=== PATIENT | female | born 1955 | race Caucasian/White ===

== ENCOUNTER 2017-06-12 12:36 | Observation (INO) | payer OTHER, SELFPAY ==
[2017-06-12] VITALS (8 sets, daily range): BP systolic 131–158; BP diastolic 71–93; PULSE 69–82; RESP 16–19; TEMP 36.2–36.8; O2SAT 95–99; BMI 34.0; BMI 33.6
--- NOTE | 2017-06-12 12:51 | RAD_ITS ---
STUDY: X-RAY CHEST REASON FOR EXAM: Female, 61 years old. Sternal chest pain and neck pain. TECHNIQUE: Single AP portable view of the chest. COMPARISON: None. FINDINGS: EKG electrodes are seen. The lungs are clear and expanded. There is no demonstrated pleural abnormality. Normal size heart. Normal mediastinum and ngozi. Normal visualized pulmonary arteries. Normal visualized aortic arch and descending thoracic aorta. Normal visualized thoracic spine. Reverse right shoulder replacement. There is good alignment. There is no demonstrated abnormality of the visualized soft tissue structures of the upper abdomen. RAD/Chest 1 View (Portable) IMPRESSION: No acute abnormality is seen. Electronically Signed: Sven Montiel MD at 13:17 EST Tel [phone], Service support ,
--- NOTE | 2017-06-12 12:51 | EKG12_ITS ---
Test Reason : CP Blood Pressure : / mmHG Vent. Rate : 080 BPM Atrial Rate : 080 BPM P-R Int : 160 ms QRS Dur : 086 ms QT Int : 360 ms P-R-T Axes : 059 066 042 degrees QTc Int : 415 ms Normal sinus rhythm Normal ECG Confirmed by JO-ANN BETANCUR, HEATHER ([id number]), general expeditor BHUPENDRA BARON ([id number]) on 06/14/2017 1:26:52 PM Referred By: KEITH/JOE Confirmed By:HEATHER BUSCH MD
[2017-06-12] MEDS: Aspirin 81 MG TAB.CHEW 324 MG PO (13:02)
[2017-06-12 13:04] LABS: Absolute Lymphocyte Count 2.55 X10^3/ul (0.83-4.51); Absolute Neutrophil Count 2.9 X10^3/uL (2.0-7.7); Basophil# 0.05 X10^3/uL; Basophil% 0.8 % (0-1); Eosinophil# 0.14 X10^3/uL; Eosinophils% 2.3 % (0-5); Hematocrit 40.4 % (37-47); Hemoglobin 13.5 g/dl (12.0-15.0); Lymphocyte # 2.55 X10^3/ul (4.0); Lymphocyte % 41.1 % (19-41); Mean Corp Hgb Conc 33.4 g/gl (32-36); Mean Corpuscular Hgb 32.5 pg (27.0-32.0); Mean Corpuscular Volume 97.1 fL (81-99); Monocyte# 0.53 X10^3/uL; Monocyte% 8.5 % (0-10); Neutrophil # 2.93 X10^3/uL (2.7-7.7); Neutrophil % 47.1 % (47-70); Platelet Count 227 K/mm3 (150-450); RBC Distribution Width SD 44.6 fl (35.1-43.9); Red Blood Count 4.16 M/mm3 (4.2-5.4); White Blood Count 6.2 K/mm3 (4.4-11.0)
[2017-06-12 13:05] LABS: POSITIVE COUNT NO; POSITIVE DIFFERENTIAL NO; POSITIVE MORPHOLOGY NO
[2017-06-12 13:19] LABS: Anion Gap 5 (5-15); BUN 17 mg/dL (7-18); BUN/Creat Ratio 26.7 RATIO (10-20); Calcium,Total 9.6 mg/dL (8.5-10.1); Chloride 100 mmol/L (98-107); Creatinine, Serum 0.64 mg/dL (0.55-1.02); EST Glomerular Filtration Rate 101 mL/min (>60); Est Glom Filt Rate - Afr Amer 122 mL/min (>60); Estimated Creatinine Clearance 67.14 ml/min; Glucose 92 mg/dL (74-106); Potassium 3.8 mmol/L (3.5-5.1); Sodium Level 136 mmol/L (136-145)
--- NOTE | 2017-06-12 14:39 | ED.DCSUM_ITS ---
- ER Visit Summary Date of Service: 06/12/17 Chief Complaint: Chest pain History of Present Illness: The patient is a 61 F presenting with chest pain which started 1 hour prior to arrival. Pain has been intermittent. It is substernal and radiates to the left side of her jaw. It is associated with shortness of breath. She has a family history of early heart disease. She has history of hiatal hernia. She is not a smoker. No other complaints. Physical Examination: Vitals are stable. Patient is afebrile. Alert no acute distress. HEENT exam is unremarkable. Neck is supple. Lungs are clear and equal bilaterally. Heart is regular rate and rhythm. Abdomen is soft nontender nondistended. Extremities are unremarkable. Skin is warm and dry. No focal neurologic deficit. Remainder of exam is unremarkable. Emergency Department Course and Treatment: EKG is sinus rate of 80 with no acute ischemic changes. Patient was given aspirin on arrival. CBC, chemistries unremarkable. Troponin is negative. She is now pain-free on reevaluation. Discussed with the hospitalist for observation. Disposition: Observation Impression: Chest pain This note was generated with Ur[employer] dictation software. It may contain incorrect words, spelling, and punctuation that were not noted in review of the chart prior to signing ED Disposition - Plan for ED Patient: Disposition: Acute Care Hospital [facility] Chief Complaint: Chest Pain
--- NOTE | 2017-06-12 14:55 | HP.PCM_ITS ---
Problem List (1) Chest pain Status: Acute Qualifiers: Chest pain type: unspecified Qualified Code(s): R07.9 - Chest pain, unspecified (2) Hypothyroidism Status: Acute (3) Depression Status: Chronic Qualifiers: Depression Type: unspecified Qualified Code(s): F32.9 - Major depressive disorder, single episode, unspecified (4) GERD (gastroesophageal reflux disease) Status: Chronic Qualifiers: Esophagitis presence: with esophagitis Qualified Code(s): K21.0 - Gastro- esophageal reflux disease with esophagitis History of Present Illness Date of Admission: 06/12/17 Chief Complaint: Chest pain - 1 day The patient is a 61 year old F past medical history of hypothyroidism, depression, hypertension, positive family history of heart disease in the father ( SC less than 50) who comes in with complaints of chest pain that was substernal, sharp to dull, radiated to a jaws and lasted for more than 40 minutes. She denied any nausea or diaphoresis or dizziness or palpitations with it. Admits to having intermittent chest pain of this kind ongoing for a couple of months. At the time of being examined, she still has some chest pain that was about 4/10 , denied any dizziness or shortness of breath. States that she has had a stress test done before 2017 that was normal. In the ED with normal temperature of 97.1F, heart rate of 76, blood pressure 133 /93, respiratory rate was 16, SPO2 is 96% on room air. Maintain blood work showed WBC count of 6.2, Hb 13.5, platelets 227. Her BMP was essentially normal. EKG shows normal sinus rhythm no acute ST-T changes. Troponin was negative. Past Medical History Past Medical History (Chronic Problems): Chronic Problems (Last Updated 05/04/17 @ 15:11 by Andressa Fields) Depression (Chronic) GERD (gastroesophageal reflux disease) (Chronic) Allergies hydrocodone [From Vicodin] Adverse Reaction (Verified 05/15/17 09:22) Itching Home Medications: Ambulatory Orders Medication Instructions Recorded Levothyroxine [Synthroid] 50 mcg PO DAILY 12/02/15 Multivitamins,Therapeutic 1 tab PO DAILY 12/02/15 [Multivitamin] Vit C/E/Zn/Coppr/Lutein/Zeaxan 2 ea PO DAILY 12/02/15 [Preservision Areds 2 Softgel] turmeric root extract 500 mg 500 mg PO QDAY 05/04/17 capsule Ranitidine HCl [Zantac 75] 75 mg PO DAILY 06/12/17 Venlafaxine HCl [Effexor Xr] 75 mg PO DAILY 06/12/17 Surgical History: hysterectomy, - - s/p colon tumor removal, h/o traumatic head injury, h/o shoulder replacement, foot surgery Psychiatric History: No pertinent psych hx GEOPHYSICAL MANAGER History: No pertinent GEOPHYSICAL MANAGER history Lives: Spouse/ Significant Other Smoking Status: Former smoker Tobacco Use: Non-smoker Alcohol: None Drugs: None - *Family History Maternal History Items: Heart Disease, Stroke Paternal History Items: Heart Disease Review of Systems Constitutional: Denies: Anorexia, Chills, Fever, Malaise, Weakness, Weight Change Eyes: Denies: Blurred vision, Cataracts, Conjunctivae Inflammation, Pain, Redness, Vision Change HEENT: Denies: Head Aches, Hearing Changes, Sinus Congestion, Sinus Drainage, Sore Throat Cardiovascular: Reports: Chest Pain, Chest Pressure. Denies: Heaviness, Light Headedness, Orthopnea, Palpitations, Paroxysmal Noc. Dyspnea Respiratory: Denies: Cough, Hemoptysis, Shortness of Breath, Shortness of breath at rest, Shortness of breath upon exertion, Sputum production Gastrointestinal: Denies: Abdominal Pain, Constipation, Nausea, Vomiting Genitourinary: Denies: Dysuria, Frequency, Incontinence Gynecological: Denies: Breast symptoms, Excessively long or heavy periods Musculoskeletal: Denies: Joint Pain, Joint stiffness, Joint swelling, Joint Tenderness Skin: Denies: Dryness, Jaundice, Rash, Wounds Neurological: Denies: Difficulty swallowing, Focal weakness, Numbness, Tingling Psychiatric: Denies: Anxiety, Depression, Homicidal Ideations, Suicidal Ideations Hematologic/ Lymphatic: Denies: Easy Bruising, Easy Bleeding VTE Information - Inpt Only VTE Present on Admission: No VTE Pharm Prophylaxis ordered?: Yes Patient Problems: Active and Suspected Problems (Last Updated 05/04/17 @ 15:11 by Andressa Fields) Chest pain (Acute) Hypothyroidism (Acute) - Physical Exam General: Alert, Oriented x3, Cooperative, No apparent distress HEENT: Atraumatic, PERRLA, EOMI, Normocephalic Oral: Moist Mucosa Neck: Supple Lungs: Clear to auscultation, Normal air movement Cardiovascular: Regular rate, Regular Rhythm, Normal S1, Normal S2, No murmurs Abdomen: Bowel Sounds Present, Soft, Non Tender, Non-Distended, No Hepato- splenomegaly Extremities: No edema Skin: No rashes Musculoskeletal: No Tenderness to Palpation of Joints or Extremities Lymphatic: No Cervical, Supraclavicular, or Inguinal Adenopathy Neurological: Cranial nerves II-XII grossly intact Psych/Mental Status: Normal Affect, Appropriate Vital Signs Temp Pulse Resp BP Pulse Ox 97.5 F L 76 18 145/90 H 95 06/12/17 12:37 06/12/17 14:13 06/12/17 14:13 06/12/17 14:13 06/12/17 14:13 Oxygen Delivery Method Room Air Weight: 79 kg Body Mass Index (BMI) 34.0 Laboratory Tests Past 24 Hrs 06/12/17 06/12/17 12:55 12:55 WBC 6.2 RBC 4.16 L Hgb 13.5 Hct 40.4 MCV 97.1 MCH 32.5 H MCHC 33.4 RDW 13.0 RDW Differential 44.6 H Plt Count 227 MPV 11.0 Immature Gran % (Auto) 0.200 Neut % (Auto) 47.1 Lymph % (Auto) 41.1 H [place] % (Auto) 8.5 Eos % (Auto) 2.3 Baso % (Auto) 0.8 Absolute Neuts (auto) 2.9 Absolute Lymphs (auto) 2.55 Total Counted Not Reportable Sodium 136 Potassium 3.8 Chloride 100 Carbon Dioxide 31.0 Anion Gap 5 BUN 17 Creatinine 0.64 Estim Creat Clear Calc 67.14 Est GFR (MDRD) Af Amer 122 Est GFR (MDRD) Non-Af 101 BUN/Creatinine Ratio 26.7 H Glucose 92 Calcium 9.6 Troponin I < 0.02 Assessment/Plan Active and Suspected Problems (Last Updated 05/04/17 @ 15:11 by Andressa Fields) Chest pain (Acute) Hypothyroidism (Acute) 61 year old F past medical history of hypothyroidism, depression, hypertension, positive family history of heart disease in the father( SC less than 50) who comes in with complaints of chest pain. 1. Chest pain, atypical, in a patient with multiple risk factors, EKG shows no acute ST-T changes, normal vitals, troponins ?1 negative, previous stress test a year ago was negative. Plan: Admit to PCU, trend troponins, monitor vitals closely on telemetry, stress test in a.m. 2. Hypothyroidism, continue on Synthroid 3. GERD, on Zantac 4. Depression, on Effexor 5. DVT prophylaxis with Lovenox subcu Code Visit OBSV E&M: 85443 Initial observation care L3
[2017-06-13 02:30] VITALS: BP 120/71; PULSE 75; RESP 16; TEMP 36.5; O2SAT 96
[2017-06-13 02:57] LABS: Hematocrit 38.1 % (37-47); Mean Corp Hgb Conc 34.1 g/gl (32-36); Mean Corpuscular Hgb 33.1 pg (27.0-32.0); Mean Corpuscular Volume 96.9 fL (81-99); Mean Platelet Vol. 10.7 fl (6.2-12.0); Platelet Count 198 K/mm3 (150-450); RBC Distribution Width CV 12.9 % (11.6-14.6); RBC Distribution Width SD 44.7 fl (35.1-43.9); Red Blood Count 3.93 M/mm3 (4.2-5.4); White Blood Count 3.9 K/mm3 (4.4-11.0)
[2017-06-13 03:01] LABS: Scan Indicated on CBC? Y/N NO
[2017-06-13 03:46] VITALS: PULSE 73
[2017-06-13 03:59] LABS: Anion Gap 8 (5-15); BUN 15 mg/dL (7-18); BUN/Creat Ratio 24.7 RATIO (10-20); Calcium,Total 8.8 mg/dL (8.5-10.1); Chloride 103 mmol/L (98-107); Creatinine, Serum 0.61 mg/dL (0.55-1.02); EST Glomerular Filtration Rate 107 mL/min (>60); Est Glom Filt Rate - Afr Amer 129 mL/min (>60); Estimated Creatinine Clearance 70.45 ml/min; Glucose 98 mg/dL (74-106); Potassium 3.8 mmol/L (3.5-5.1); Sodium Level 139 mmol/L (136-145)
[2017-06-13] MEDS: Levothyroxine 50 MCG Tablet PO (05:51)
[2017-06-13] MEDS: Aspirin E.C. 81 MG Tablet PO (05:51)
--- NOTE | 2017-06-13 05:55 | EKG12_ITS ---
Test Reason : AM Blood Pressure : / mmHG Vent. Rate : 073 BPM Atrial Rate : 073 BPM P-R Int : 152 ms QRS Dur : 094 ms QT Int : 394 ms P-R-T Axes : 037 071 054 degrees QTc Int : 434 ms Normal sinus rhythm Normal ECG When compared with ECG of 12-JUN-2017 12:38, MANUAL COMPARISON REQUIRED, DATA IS UNCONFIRMED Confirmed by RADHA ATKINS ([id number]), slot editor BHUPENDRA BARON ([id number]) on 06/15/2017 3:17:04 PM Referred By: ELISABETH Confirmed By:RADHA ATKINS
[2017-06-13 07:09] VITALS: PULSE 72
[2017-06-13 08:28] VITALS: BP 129/85; PULSE 85; RESP 16; TEMP 36.7; O2SAT 97
[2017-06-13] MEDS: Venlafaxine XR 75 MG Capsule PO (12:04)
[2017-06-13] MEDS: Famotidine 20 MG Tablet PO (12:05)
[2017-06-13] MEDS: Multivitamins,Therapeutic Tablet 1 TABLET PO (12:05)
--- NOTE | 2017-06-13 12:18 | PCM.DC ---
- Discharge Diagnoses Current Active Problems: Current Active and Chronic Problems (Last Updated 05/04/17 @ 15:11 by Andressa Fields) Chest pain (Acute) Hypothyroidism (Acute) Depression (Chronic) You will use the following diet at home:: Regular Your food should be the consistency of: Regular Discharge Activity: Return to Normal Activity Weight Bearing Status: Full weight bearing Call your doctor if you observe: Fever of 101 or Higher, Shortness of breath, Dizziness, Fainting spells, Chest pain, Increased palpitations (irregular heartbeat), Uncontrolled pain Instructions: Discharge Instructions for Gastroesophageal Reflux Disease (GERD) Allergies/Adverse Reactions: Allergies hydrocodone [From Vicodin] Adverse Reaction (Verified 05/15/17 09:22) Itching Medications to take at Discharge Levothyroxine [Synthroid] 50 mcg PO DAILY 12/02/15 Multivitamins,Therapeutic [Multivitamin] 1 tab PO DAILY 12/02/15 Vit C/E/Zn/Coppr/Lutein/Zeaxan [Preservision Areds 2 Softgel] 2 ea PO DAILY 12/02/15 turmeric root extract 500 mg capsule 500 mg PO QDAY 05/04/17 Venlafaxine HCl [Effexor Xr] 75 mg PO DAILY 06/12/17 Pantoprazole Sodium [Protonix] 40 mg PO DAILY #30 tab 06/13/17 The following prescriptions were given: Pantoprazole Sodium [Protonix] 40 mg PO DAILY #30 tab Primary Care Physician: Familia Alonso MD [Primary Care Provider] - Please follow up with your Primary Care Physician in: 2-3 weeks.
[2017-06-13 12:19] VITALS: BP 128/68; PULSE 82; RESP 16; TEMP 36.4; O2SAT 99
[2017-06-13 12:23] VITALS: PULSE 94
--- NOTE | 2017-06-13 12:53 | PCM.DC.SUM ---
Discharge Date and Diagnosis - Problem List Patient Problems: Active and Suspected Problems (Last Updated 05/04/17 @ 15:11 by Andressa Fields) Chest pain (Acute) Hypothyroidism (Acute) Date of Admission: 06/12/17 Date of Discharge: 06/13/17 - Primary Discharge Diagnosis Active and Suspected Problems (Last Updated 05/04/17 @ 15:11 by Andressa Fields) Atypical chest pain, negative cardiac workup including a stress test. - Secondary Discharge Diagnosis Chronic Problems (Last Updated 05/04/17 @ 15:11 by Andressa Fields) Depression (Chronic) GERD (gastroesophageal reflux disease) (Chronic) Hospital Course and Treatment Imaging Results: 06/13/17 05:55 Nuclear Stress Test - Chemical [NM] AM (NON MEDS) Clinical Impression(s) from Imaging Studies Chest X-Ray 06/12/17 12:51 IMPRESSION: No acute abnormality is seen. Electronically Signed: Sven Montiel MD at 13:17 EST Tel [phone], Service support , Operations: None Procedures: EKG, Stress test Summary of Care Provided: Patient seen and examined on the day of discharge and appeared to be stable to be discharged home. She has no more chest pain. Denies any more symptoms. She complained of epigastric pain intermittently and she has been on Zantac due to GERD. Her vital signs are stable. - Physical Exam General: Alert, Oriented x3, Cooperative, No apparent distress. HEENT: Atraumatic, PERRLA, EOMI. Neck: Supple, No JVD, Negative Carotid Bruits, Trachea Midline, Thyroid Normal. Lungs: Clear to auscultation, Normal air movement, No rhonchi, No wheeze, No rales. Cardiovascular: Regular rate, Regular Rhythm, Normal S1, Normal S2, PMI Normal. Abdomen: Bowel Sounds Present, Soft, Non Tender, Non-Distended, No Hepato-splenomegaly. Extremities: No clubbing, No cyanosis, No edema Skin: No rashes, No breakdown Neurological: Neuro grossly intact Vital Signs are stable. Hospital course: The patient is a 61 year old F admitted because of atypical chest pain for evaluation. Her risk factors were hypertension and family history of heart disease but not premature. Her EKG revealed no acute ischemic changes. Her troponin was negative ?4. Chest x-ray showed no acute findings. She underwent nuclear stress test that revealed no evidence of acute stress-induced medical ischemia and reported as negative. Her vital signs were stable. Her routine blood work was unremarkable. Her symptoms attributed to GERD and she was discharged on Protonix. She was on Zantac previously. Patient discharged home in a stable medical condition, discharged on Protonix 40 mg p.o. daily, continued on other medications without any changes, recommended follow-up with PCP in 2-3 weeks. Discharge Activity: Return to Normal Activity Weight Bearing Status: Full weight bearing Call your doctor if you observe: Fever of 101 or Higher, Shortness of breath, Dizziness, Fainting spells, Chest pain, Increased palpitations (irregular heartbeat), Uncontrolled pain Home Medications: Medications to take at Discharge Levothyroxine [Synthroid] 50 mcg PO DAILY 12/02/15 Multivitamins,Therapeutic [Multivitamin] 1 tab PO DAILY 12/02/15 Vit C/E/Zn/Coppr/Lutein/Zeaxan [Preservision Areds 2 Softgel] 2 ea PO DAILY 12/02/15 turmeric root extract 500 mg capsule 500 mg PO QDAY 05/04/17 Venlafaxine HCl [Effexor Xr] 75 mg PO DAILY 06/12/17 Pantoprazole Sodium [Protonix] 40 mg PO DAILY #30 tab 06/13/17 Following Prescrptions Were Given to Patient: Pantoprazole Sodium [Protonix] 40 mg PO DAILY #30 tab Primary Care Physician: Familia Alonso MD [Primary Care Provider] - Please follow up with your Primary Care Physician in: 2-3 weeks. Patient Instructions: Discharge Instructions for Gastroesophageal Reflux Disease (GERD) Disposition: Home Minutes spent on discharge:: 24 Patient Condition:: Stable Meaningful Use Info Meaningful Use Diagnoses (Choose all that apply): None applicable Code Visit OBSV E&M: 10005 Observation care discharge
--- NOTE | 2017-06-13 12:57 | DS.PCM_ITS ---
Discharge Date and Diagnosis - Problem List Patient Problems: Active and Suspected Problems (Last Updated 05/04/17 @ 15:11 by Andressa Fields) Chest pain (Acute) Hypothyroidism (Acute) Date of Admission: 06/12/17 Date of Discharge: 06/13/17 - Primary Discharge Diagnosis Active and Suspected Problems (Last Updated 05/04/17 @ 15:11 by Andressa Fields) Atypical chest pain, negative cardiac workup including a stress test. - Secondary Discharge Diagnosis Chronic Problems (Last Updated 05/04/17 @ 15:11 by Andressa Fields) Depression (Chronic) GERD (gastroesophageal reflux disease) (Chronic) Hospital Course and Treatment Imaging Results: 06/13/17 05:55 Nuclear Stress Test - Chemical [NM] AM (NON MEDS) Clinical Impression(s) from Imaging Studies Chest X-Ray 06/12/17 12:51 IMPRESSION: No acute abnormality is seen. Electronically Signed: Sven Montiel MD at 13:17 EST Tel [phone], Service support , Operations: None Procedures: EKG, Stress test Summary of Care Provided: Patient seen and examined on the day of discharge and appeared to be stable to be discharged home. She has no more chest pain. Denies any more symptoms. She complained of epigastric pain intermittently and she has been on Zantac due to GERD. Her vital signs are stable. - Physical Exam General: Alert, Oriented x3, Cooperative, No apparent distress. HEENT: Atraumatic, PERRLA, EOMI. Neck: Supple, No JVD, Negative Carotid Bruits, Trachea Midline, Thyroid Normal. Lungs: Clear to auscultation, Normal air movement, No rhonchi, No wheeze, No rales. Cardiovascular: Regular rate, Regular Rhythm, Normal S1, Normal S2, PMI Normal. Abdomen: Bowel Sounds Present, Soft, Non Tender, Non-Distended, No Hepato- splenomegaly. Extremities: No clubbing, No cyanosis, No edema Skin: No rashes, No breakdown Neurological: Neuro grossly intact Vital Signs are stable. Hospital course: The patient is a 61 year old F admitted because of atypical chest pain for evaluation. Her risk factors were hypertension and family history of heart disease but not premature. Her EKG revealed no acute ischemic changes. Her troponin was negative ?4. Chest x-ray showed no acute findings. She underwent nuclear stress test that revealed no evidence of acute stress-induced medical ischemia and reported as negative. Her vital signs were stable. Her routine blood work was unremarkable. Her symptoms attributed to GERD and she was discharged on Protonix. She was on Zantac previously. Patient discharged home in a stable medical condition, discharged on Protonix 40 mg p.o. daily, continued on other medications without any changes, recommended follow-up with PCP in 2-3 weeks. Discharge Activity: Return to Normal Activity Weight Bearing Status: Full weight bearing Call your doctor if you observe: Fever of 101 or Higher, Shortness of breath, Dizziness, Fainting spells, Chest pain, Increased palpitations (irregular heartbeat), Uncontrolled pain Home Medications: Medications to take at Discharge Levothyroxine [Synthroid] 50 mcg PO DAILY 12/02/15 Multivitamins,Therapeutic [Multivitamin] 1 tab PO DAILY 12/02/15 Vit C/E/Zn/Coppr/Lutein/Zeaxan [Preservision Areds 2 Softgel] 2 ea PO DAILY 02/06 turmeric root extract 500 mg capsule 500 mg PO QDAY 05/04/17 Venlafaxine HCl [Effexor Xr] 75 mg PO DAILY 06/12/17 Pantoprazole Sodium [Protonix] 40 mg PO DAILY #30 tab 06/13/17 Following Prescrptions Were Given to Patient: Pantoprazole Sodium [Protonix] 40 mg PO DAILY #30 tab Primary Care Physician: Familia Alonso MD [Primary Care Provider] - Please follow up with your Primary Care Physician in: 2-3 weeks. Patient Instructions: Discharge Instructions for Gastroesophageal Reflux Disease (GERD) Disposition: Home Minutes spent on discharge:: 24 Patient Condition:: Stable Meaningful Use Info Meaningful Use Diagnoses (Choose all that apply): None applicable Code Visit OBSV E&M: 31479 Observation care discharge
--- NOTE | 2017-06-13 13:31 | CHAPLAIN ---
Type of Pastoral Visit _x__ Initial Visit ___ Follow-up Visit ___ On-call Visit ___ General Patient Visit ___ Spiritual Assessment ___ Family Conference ___ Bereavement ___ Rapid Response ___ Code Blue ___ Other (describe below) Pastoral Care Referral From _x__ Patient ___ Family ___ Nurse ___ Physician ___ Bead Machine Operator ___ Suture Winder Hand ___ Other (describe below) Sacrament/Intervention _x__ Active listening ___ Anointing ___ Shinto ___ Bereavement ___ Communion ___ Denise exploration ___ ___ Life review ___ Prayer ___ Reconciliation ___ Sacrament of Sick ___ Supportive presence ___ Wedding ___ Other (describe below) Pastoral Comments
--- NOTE | 2017-06-13 13:44 | STRESSREP ---
Stress Test Report Date: 06/13/2017 Procedure: Exercise tolerance test/imaging study Indications: Shortness of breath/dyspnea Consent: Per the patient Procedure: The patient underwent pharmacologic (Regadenoson (evaluation with a peak heart rate of 104 bpm (65% predicted maximal heart rate) with a peak blood pressure 152/82 mmHg. The baseline ECG demonstrated normal sinus rhythm. The peak pharmacologic ECG demonstrated no obvious ECG changes. There were no cardiac dysrhythmias pretest, during pharmacologic infusion, or recovery. The examination was discontinued secondary to completion of protocol. Impression: 1. Pharmacologic (Regadenoson) evaluation 2. Peak pharmacologic ECG with no obvious ECG changes 3. Nuclear images pending Myocardial perfusion imaging study: Technique: The patient was injected with 11.1 mCi of technetium 99m Cardiolite and subsequently rest SPECT Cardiolite nuclear imaging was obtained in the horizontal long, vertical long, and short axis views. The patient underwent pharmacologic (Regadenoson (evaluation with a peak heart rate of 104 bpm (65% predicted maximal heart rate) with a peak blood pressure 152/82 mmHg 83.4 mCi of technetium 99m Cardiolite and subsequently stress SPECT Cardiolite nuclear imaging was obtained in the horizontal long, vertical long, and short axis views. A gated Cardiolite study at peak stress was obtained. Interpretation: Rest and stress SPECT Cardiolite nuclear imaging status post realignment, normalization, and attenuation correction, demonstrates the appearance of relative uniform tracer uptake and myocardial perfusion appearing within normal limits. There is end systolic thickening and brightening. The gated Cardiolite study demonstrates myocardial thickening and inward wall motion. The reported LVEF is 83%. Impression: 1. Rest and stress SPECT Cardiolite nuclear imaging demonstrates relative uniform tracer uptake and myocardial perfusion appearing within normal limits. 2. The gated Cardiolite study reports an LVEF of 83%. This note was generated with [employer] software. It may contain incorrect words, spelling, and punctuation that were not noted in checking the note before signing.
== END 2017-06-13 13:31 | disposition home or self-care (01) ==
LOC: ED 13:34 → PCU 14:56
PROVIDERS: Admitting Provider Internal Medicine; Emergency Provider Emergency Medicine; Family Provider Family Medicine; PCP Family Medicine; Visit Provider Hospitalist
DX: R07.89 Other chest pain (principal); E03.9 Hypothyroidism, unspecified; K21.9 Gastro-esophageal reflux disease without esophagitis; Z79.899 Other long term (current) drug therapy; F32.9 Major depressive disorder, single episode, unspecified; Z82.49 Family history of ischemic heart disease and other diseases of the circulatory system; Z87.891 Personal history of nicotine dependence; R68.84 Jaw pain
CPT/HCPCS: 36415; 71045; 78452; 80048; 84484; 85025; 85027; 93005; 93017; 99218; 99283; A9500; A4216; G0378; J2785

== ENCOUNTER → 2017-09-01 14:46 | Outpatient (CLI) | payer OTHER, SELFPAY ==
[2017-09-01 17:33] LABS: Absolute Lymphocyte Count 1.75 X10^3/ul (0.83-4.51); Absolute Neutrophil Count 1.9 X10^3/uL (2.0-7.7); Basophil# 0.03 X10^3/uL; Basophil% 0.7 % (0-1); Eosinophil# 0.14 X10^3/uL; Eosinophils% 3.3 % (0-5); Hematocrit 37.2 % (37-47); Hemoglobin 12.5 g/dl (12.0-15.0); Lymphocyte # 1.75 X10^3/ul (4.0); Lymphocyte % 41.1 % (19-41); Mean Corp Hgb Conc 33.6 g/gl (32-36); Mean Corpuscular Hgb 32.7 pg (27.0-32.0); Mean Corpuscular Volume 97.4 fL (81-99); Mean Platelet Vol. 11.8 fl (6.2-12.0); Monocyte% 9.4 % (0-10); Neutrophil # 1.93 X10^3/uL (2.7-7.7); Neutrophil % 45.3 % (47-70); Platelet Count 214 K/mm3 (150-450); RBC Distribution Width CV 13.3 % (11.6-14.6); RBC Distribution Width SD 45.4 fl (35.1-43.9); Red Blood Count 3.82 M/mm3 (4.2-5.4); White Blood Count 4.3 K/mm3 (4.4-11.0)
[2017-09-01 17:40] LABS: POSITIVE COUNT NO; POSITIVE DIFFERENTIAL NO; POSITIVE MORPHOLOGY NO
[2017-09-01 17:54] LABS: Vitamin D,25 Hydroxy 21.6 ng/mL (29.95-100.01)
[2017-09-01 18:17] LABS: Anion Gap 9 (5-15); BUN 20 mg/dL (7-18); BUN/Creat Ratio 29.7 RATIO (10-20); Calcium,Total 8.9 mg/dL (8.5-10.1); Chloride 105 mmol/L (98-107); Creatinine, Serum 0.67 mg/dL (0.55-1.02); EST Glomerular Filtration Rate 94 mL/min (>60); Est Glom Filt Rate - Afr Amer 114 mL/min (>60); Free T3 2.5 pg/mL (2.18-3.98); Glucose 89 mg/dL (74-106); Potassium 3.9 mmol/L (3.5-5.1); Sodium Level 141 mmol/L (136-145); T4 Free Direct 1.02 ng/dL (0.76-1.46); Thyroid Stim Hormone (TSH) 1.69 uIU/mL (0.358-3.74)
== END ==
PROVIDERS: Family Provider Family Medicine; PCP Family Medicine; Visit Provider Family Medicine
DX: E03.9 Hypothyroidism, unspecified (principal); M25.552 Pain in left hip; R53.83 Other fatigue
CPT/HCPCS: 36415; 80048; 82306; 84439; 84443; 84481; 85025

== ENCOUNTER 2017-12-07 10:30 | Emergency (ER) | payer OTHER, SELFPAY ==
[2017-12-07 10:32] VITALS: BP 164/83; PULSE 107; RESP 16; TEMP 38.1; O2SAT 95; BMI 35.3
--- NOTE | 2017-12-07 10:59 | ED.DCSUM_ITS ---
- ER Visit Summary Date of Service: 12/07/17 Chief Complaint: Headache History of Present Illness: The patient is a 62 F who presents with a headache, gradual onset over the past 3 days. She was noted to have a fever in the emergency department but denies fever over the past few days. She has a cough. Sinus tenderness. No chest pain or shortness of breath. She saw her PCP just prior to arrival to the emergency department. Physical Examination: She appears in slight distress. Moist mucous membranes, no obvious facial deformity. She has beefy red nasal turbinates, rhinorrhea, postnasal drip and sinus tenderness. She has bulging bilateral erythematous TMs. No C-spine tenderness supple neck. It of jolt. She does have one posterior auricular lymph node. Regular rate and rhythm without any obvious murmurs Clear lungs bilaterally speaking in full sentences without any obvious respiratory distress Abdomen soft and nontender no guarding or rebound Moves all extremities without any difficulty or pain. Skin does not show any obvious rashes or lesions, no trauma. Alert oriented ?3 with no gross focal deficit Emergency Department Course and Treatment: Patient had a negative CT. she has clinical sinusitis. There are no signs and symptoms to point towards intracranial pathology, this was a gradual onset of headache with normal neurological exam, I am not worried about subarachnoid. She has no meningismus. She will be treated for sinusitis. She will be discharged in stable condition Impression: Sinusitis This note was generated with [employer] dictation software. It may contain incorrect words, spelling, and punctuation that were not noted in review of the chart prior to signing ED Disposition - Plan for ED Patient: Disposition: Home or Assisted Living Chief Complaint: Headache Instructions: ED Headache Sinus Prescriptions: Azithromycin 500 mg PO DAILY 5 Days #6 tab Referrals: Familia Alonso MD [Primary Care Provider] - 3-5 Days
[2017-12-07] MEDS: oxyCODONE 5 MG Tablet PO (11:17)
[2017-12-07] MEDS: Ketorolac 30 MG/ML Syringe IM (11:18)
[2017-12-07 13:34] VITALS: BP 124/81; PULSE 85; PULSE 86; RESP 14; RESP 17; TEMP 37.2; O2SAT 93
== END 2017-12-07 13:38 | disposition home or self-care (01) ==
PROVIDERS: Emergency Provider Emergency Medicine; Family Provider Family Medicine; PCP Family Medicine
DX: J32.9 Chronic sinusitis, unspecified (principal); Z79.899 Other long term (current) drug therapy
CPT/HCPCS: 70450; 96372; 99283

== ENCOUNTER → 2018-09-14 | Outpatient (CLI) | payer OTHER, SELFPAY ==
[2018-09-14 13:18] LABS: AST(SGOT) 28 U/L (15-37); Alanine Aminotransfer ALT/SGPT 44 U/L (13-56); Albumin, Serum 4.3 g/dL (3.2-5.0); Alkaline Phosphatase 55 U/L (45-117); Globulin 3.4 g/dL (2.2-4.2); Protein, Total 7.7 g/dL (6.4-8.2)
== END | disposition home or self-care (01) ==
LOC: LAB.FUTURE 09:51
PROVIDERS: Family Provider Family Medicine; PCP Family Medicine; Visit Provider Family Medicine
DX: Z83.79 Family history of other diseases of the digestive system (principal)
CPT/HCPCS: 36415; 80076

== ENCOUNTER → 2022-03-29 | Outpatient (CLI) | payer MEDICARE, SELFPAY ==
--- NOTE | 2022-03-29 08:17 | EKG12_ITS ---
Test Reason : PREOP Blood Pressure : / mmHG Vent. Rate : 067 BPM Atrial Rate : 067 BPM P-R Int : 154 ms QRS Dur : 086 ms QT Int : 398 ms P-R-T Axes : 031 068 059 degrees QTc Int : 420 ms Normal sinus rhythm Normal ECG Confirmed by JO-ANN BETANCUR, HEATHER ([id number]), editorial intern NA GRACIA ([id number]) on 03/30/2022 8:55:16 AM Referred By: Aurelio Sandoval Confirmed By:HEATHER BUSCH MD
== END | disposition home or self-care (01) ==
PROVIDERS: Referring Provider Student in an Organized Health Care Education/Training Program; Visit Provider Student in an Organized Health Care Education/Training Program
DX: Z01.818 Encounter for other preprocedural examination (principal); Z01.810 Encounter for preprocedural cardiovascular examination
CPT/HCPCS: 93005

== ENCOUNTER → 2022-03-31 | Outpatient (CLI) | payer MEDICARE, SELFPAY ==
--- NOTE | 2022-03-31 08:42 | CT_ITS ---
EXAM: CT RIGHT LOWER EXTREMITY WITHOUT INTRAVENOUS CONTRAST CLINICAL INDICATION: PAIN IN RT KNEE, suRGICAL PLANNING TECHNIQUE: Helically acquired images were obtained of the right lower extremity without intravenous contrast. 2-D reformats were performed by the technologist. CTDIvol = ( 19.13 ) mGy, DLP = ( 1141.12 ) mGycm This CT exam was performed using one or more of the following dose reduction techniques: automated exposure control, adjustment of the mA and/or kV according to patient size, and/or use of iterative reconstruction technique. This report was created using [employer] report Two Tap technology. COMPARISON: None. FINDINGS: BONES/JOINTS: At least moderate osteoarthrosis. Chondrocalcinosis involving the acetabular labrum. Moderate tricompartmental osteoarthrosis of the knee, worse at the medial femorotibial compartment. No significant joint effusion. No suspicious lytic or sclerotic lesions above. Degenerative changes involving the ankle and foot. No acute fracture. No subluxation. Normal alignment. SOFT TISSUES: No remarkable masses or fluid collections involving the soft tissues. Small calcifications/ossifications involving the quadriceps tendon. No soft tissue swelling or gas. No radiopaque foreign body. CT/Extremity Lower without Contra IMPRESSION: 1. Study performed for preoperative planning purposes with at least moderate osteoarthrosis involving the hip and knee. 2. Ancillary findings as above. Electronically Signed: Guilherme Ayala MD at 17:36 EST ,
== END | disposition home or self-care (01) ==
PROVIDERS: Referring Provider Student in an Organized Health Care Education/Training Program; Visit Provider Student in an Organized Health Care Education/Training Program
DX: M17.11 Unilateral primary osteoarthritis, right knee (principal); M25.561 Pain in right knee
CPT/HCPCS: 73700